=== PATIENT | male | born 1940 | race Caucasian/White ===

== ENCOUNTER → 2017-04-12 | Outpatient (CLI) | payer MEDICARE ==
[~2017-04-12] MED LIST: ADULT LOW DOSE81 MG PO; ALLOPURINOL300 MG PO; ALPHAGAN P100 DROP/5 BOTH EYES; ASPIRIN81 M1 PO; AZOPT 1% O200 DROP/1 BOTH EYES; CALCITRIOL0.25 MCG PO; CEFADROXIL500 MG PO; CVS FISH OIL 11 EAC1 PO; DIPROSONE 0.05%15 GM; EMBELINE15 GM TP; FISH OIL 1,0001 EACH PO; FUROSEMIDE40 MG PO; IRON45 MG PO; LANTUS 3 M100 UNITS1 SC; LANTUS100 UNIT/1 SQ; LASIX40 MG PO; LIPITOR40 MG PO; LIPITOR80 MG PO; LISINOPRIL40 MG PO; LUMIGAN 0.50 DROP/2. BOTH EYES; MARTINIC1 EACH PO; METAMUCIL PACKE1 PKT PO; METAMUCIL1 EACH PO; OMEGA-31000 MG PO; OMEPRAZOLE20 MG PO; PIOGLITAZONE HC30 MG PO; PRILOSEC20 MG PO; PRINIVIL20 MG PO; SEREVENT DISKU50 MCG IH; SERTRALINE HCL100 MG PO; SERTRALINE HCL50 MG PO; THEO-DUR,THEOC300 MG PO; TOPICORT 0.25%60 GM TP; TRAVATAN Z5 ML BOTH EYES; TRICOR145 MG PO; TRICOR48 MG PO; VITAMIN B-122500 MCG SL; VITAMIN C500 M1 PO; VITAMIN D5000 UNIT PO; VITAMIN E400 UNIT PO
== END | disposition home or self-care (01) ==
LOC: CDC 12:57
DX: Z01.810 Encounter for preprocedural cardiovascular examination (principal); M19.012 Primary osteoarthritis, left shoulder; R94.31 Abnormal electrocardiogram [ECG] [EKG]
CPT/HCPCS: 93000